=== PATIENT | male | born 1955 ===

== ENCOUNTER 2017-12-01 13:01 | Emergency (ER) | payer SELFPAY ==
[2017-12-01 13:02] VITALS: BMI 27.3
[2017-12-01 13:20] VITALS: BP 141/83; PULSE 64; RESP 20; TEMP 97; O2SAT 98
[2017-12-01] MEDS ORDERED: Oxycodone/Acetaminophen 5/325 mg Tab PO STA (13:39)
[2017-12-01] MEDS ORDERED: Oxycodone/Acetaminophen 5/325 mg Tab ONE (13:57)
--- NOTE | 2017-12-01 13:57 | ED PDOC ---
HPI: Back Time Seen by Provider: 12/01/17 13:39 Chief Complaint (Nursing): Back Pain Chief Complaint (Provider): Back Pain History Per: Patient History/Exam Limitations: no limitations Onset/Duration Of Symptoms: Days (x4 days ago ) Current Symptoms Are (Timing): Still Present Exacerbating Factor(s): Movement, Other (coughing, sneezing, and deep breaths) Additional Complaint(s): Dillon Tapia is a 62 year old with a past medical history of hypercholesterolemia and hypothyroidism, who presents to the emergency department after sustaining a fall from his truck x4 days ago. He reports having pain to his entire left side. Patient states his pain is worsened with coughing, sneezing, movements, and taking deep breaths. He also states that he hit his head but only had minimal pain with no loss of consciousness. PMD: Johnny Thompson Past Medical History Reviewed: Historical Data, Nursing Documentation, Vital Signs Vital Signs: Last Vital Signs Temp 97 F L 12/01/17 13:16 Pulse 64 12/01/17 13:16 Resp 20 12/01/17 13:16 BP 141/83 12/01/17 13:16 Pulse Ox 98 12/01/17 13:16 - Medical History PMH: Hypercholesterolemia, Hypothyroidism - Surgical History Surgical History: No Surg Hx - Family History Family History: States: Unknown Family Hx - Home Medications Home Medications: Ambulatory Orders Medication Instructions Recorded Naproxen 375 mg PO Q8 PRN #21 tablet 12/01/17 oxyCODONE/Acetaminophen [Percocet 1 ea PO Q6 PRN #10 tab 12/01/17 5/325 mg Tab] - Allergies Allergies/Adverse Reactions: Allergies Allergy/AdvReac Type Severity Reaction Status Date / Time No Known Allergies Allergy Verified 12/01/17 13:14 Review of Systems ROS Statement: Except As Marked, All Systems Reviewed And Found Negative Musculoskeletal: Positive for: Other (left sided pain) Skin: Negative for: Other (lacerations ) Neurological: Negative for: Other (loss of consciousness ) Physical Exam - Reviewed Nursing Documentation Reviewed: Yes Vital Signs Reviewed: Yes - Physical Exam Appears: Positive for: Well Head Exam: Positive for: ATRAUMATIC, NORMOCEPHALIC Skin: Positive for: Warm, Dry Eye Exam: Positive for: Normal appearance ENT: Positive for: Normal ENT Inspection Neck: Positive for: Normal, Painless ROM, Supple Cardiovascular/Chest: Positive for: Regular Rate, Rhythm Respiratory: Positive for: Normal Breath Sounds. Negative for: Respiratory Distress Gastrointestinal/Abdominal: Positive for: Normal Exam, Bowel Sounds, Soft. Negative for: Tenderness Back: Positive for: L CVA Tenderness. Negative for: R CVA Tenderness, Vertebral Tenderness Neurologic/Psych: Positive for: Alert, Oriented (x3) - ECG O2 Sat by Pulse Oximetry: 98 (RA) Pulse Ox Interpretation: Normal - Progress ED Course And Treament: RIB SERIES LEFT: IMPRESSION: Possible small subtle left 7th rib fracture. No pneumothorax or effusion. HEAD CT: NAD PERCOCET 5/325 MG X 1 DOSE INCENTIVE SPIROMETRY INSTRUCTIONS GIVEN. Medical Decision Making Medical Decision Making: Initial Time: 13:35 Initial Plan: --CT Head w/o contrast --Percocet 5/325 mg tab --X-ray of ribs left and PA chest Scribe Attestation: Documented by Ki Friedman, acting as a scribe for Roshan Portillo PA-C Provider Scribe Attestation: All medical record entries made by the Scribe were at my direction and personally dictated by me. I have reviewed the chart and agree that the record accurately reflects my personal performance of the history, physical exam, medical decision making, and the department course for this patient. I have also personally directed, reviewed, and agree with the discharge instructions and disposition. Disposition - Clinical Impression Clinical Impression: Rib fracture - Patient ED Disposition Is Patient to be Admitted: No - Disposition Disposition: Routine/Home Disposition Time: 15:11 Condition: FAIR Prescriptions: Naproxen 375 mg PO Q8 PRN #21 tablet PRN Reason: Pain, Moderate (4-7) oxyCODONE/Acetaminophen [Percocet 5/325 mg Tab] 1 ea PO Q6 PRN #10 tab PRN Reason: Pain, Severe (8-10) Instructions: Rib Fracture (DC) Forms: [facility] ED School/Work Excuse Print Language: ROMANIAN
--- NOTE | 2017-12-01 14:44 | RAD ---
Date of service: 12/01/2017 PROCEDURE: Radiographs of the Chest and Left Ribs. HISTORY: rib injury COMPARISON: None available. TECHNIQUE: Frontal radiograph of the chest and multiple oblique radiographs of the left ribs were obtained. FINDINGS: LEFT RIBS: There is the suggestion of some possible irregularity of the posterior lateral aspect of the left 7th rib. This may reflect nondisplaced fracture. No other rib fractures are seen. Right ribs are intact. LUNGS: There is minor subsegmental atelectasis at the lung bases. PLEURA: No pneumothorax or pleural fluid. CARDIOVASCULAR: Normal sized heart. No pulmonary vascular congestion. OTHER FINDINGS: None. IMPRESSION: Possible small subtle left 7th rib fracture. No pneumothorax or effusion.
--- NOTE | 2017-12-01 15:00 | CT ---
Date of service: 12/01/2017 PROCEDURE: CT HEAD WITHOUT CONTRAST. HISTORY: head injury COMPARISON: None available. TECHNIQUE: Axial computed tomography images were obtained through the head/brain without intravenous contrast. Radiation dose: Total exam DLP = 818 mGy-cm. This CT exam was performed using one or more of the following dose reduction techniques: Automated exposure control, adjustment of the mA and/or kV according to patient size, and/or use of iterative reconstruction technique. FINDINGS: HEMORRHAGE: No intracranial hemorrhage. Subdural windows fail to reveal evidence of high density extra-axial acute subdural hematoma. BRAIN: No mass effect or edema. No cortical effacement seen. No significant decreased density in the white matter tracts. Mild calcific atherosclerotic change of the distal intracranial internal carotid arteries. VENTRICLES: Unremarkable. No hydrocephalus. CALVARIUM: Unremarkable. PARANASAL SINUSES: Unremarkable as visualized. No significant inflammatory changes. MASTOID AIR CELLS: Unremarkable as visualized. No inflammatory changes. OTHER FINDINGS: Retro-orbital regions are unremarkable. IMPRESSION: No evidence of intracranial hemorrhage or recent infarct. No evidence of subdural hematoma.
== END 2017-12-01 15:22 | disposition home or self-care (01) ==
LOC: H.ER 13:01
DX: S22.32XA Fracture of one rib, left side, initial encounter for closed fracture (principal); V87.8XXA Person injured in other specified noncollision transport accidents involving motor vehicle (traffic), initial encounter